=== PATIENT | male | born 1965 | race African-American/Black ===

== ENCOUNTER 2017-06-25 17:50 | Emergency (ER) | payer OTHER ==
[~2017-06-25] VITALS: Ht 170.2 cm; Wt 170.1 kg
[2017-06-25 19:11] VITALS: BP 142/68
[2017-06-25] MEDS ORDERED: IBUPROFEN 800 MG TAB PO ONE ×2 (19:30→19:41)
== END 2017-06-25 19:55 | disposition home or self-care (01) ==
LOC: ER 17:53
DX: S80.02XA Contusion of left knee, initial encounter (principal); I10 Essential (primary) hypertension; E78.5 Hyperlipidemia, unspecified; Z88.8 Allergy status to other drugs, medicaments and biological substances; W11.XXXA Fall on and from ladder, initial encounter; Y93.89 Activity, other specified; Y99.8 Other external cause status; Y92.89 Other specified places as the place of occurrence of the external cause
CPT/HCPCS: 29505; 73564

== ENCOUNTER 2018-03-16 21:00 | Emergency (ER) | payer OTHER ==
[~2018-03-16] VITALS: Ht 172.7 cm; Wt 172.4 kg
[2018-03-16 21:18] VITALS: BP 157/55
[2018-03-16] MEDS ORDERED: ACETAMINOPHEN 325 MG TAB PO ONE (21:30)
== END 2018-03-17 01:29 | disposition home or self-care (01) ==
LOC: ER 21:00
DX: J06.9 Acute upper respiratory infection, unspecified (principal); J02.9 Acute pharyngitis, unspecified; E78.5 Hyperlipidemia, unspecified; I10 Essential (primary) hypertension

== ENCOUNTER 2023-10-06 22:43 | Emergency (ER) | payer OTHER ==
[~2023-10-06] VITALS: Ht 170.2 cm; Wt 148.0 kg
[2023-10-07] MEDS ORDERED: CEPH500C PO (03:14)
[2023-10-07] MEDS: cefTRIAXone SOD 1,000 MG VL IM ONE (03:43)
[2023-10-07] MEDS: TETANUS-DIPTH-ACEL PERTUSSIS 0.5ML SYR Tdap IM ONE (03:44)
[2023-10-07 03:45] VITALS: BP 138/66; PULSE 78; RESP 18; TEMP 98; O2SAT 98
== END 2023-10-07 03:59 | disposition home or self-care (01) ==
LOC: ER 22:43
DX: S80.862A Insect bite (nonvenomous), left lower leg, initial encounter (principal); S80.861A Insect bite (nonvenomous), right lower leg, initial encounter; I10 Essential (primary) hypertension; E11.9 Type 2 diabetes mellitus without complications; E78.5 Hyperlipidemia, unspecified; Z88.0 Allergy status to penicillin; Z79.899 Other long term (current) drug therapy; Z91.018 Allergy to other foods; W57.XXXA Bitten or stung by nonvenomous insect and other nonvenomous arthropods, initial encounter; Y93.89 Activity, other specified; Y92.89 Other specified places as the place of occurrence of the external cause; Y99.8 Other external cause status
CPT/HCPCS: 90471; 90715; 96372; 99284; J0696

== ENCOUNTER 2024-04-13 02:20 | Emergency (ER) | payer OTHER ==
[~2024-04-13] VITALS: Ht 172.7 cm; Wt 151.8 kg
[~2024-04-13 02:20] MED LIST: CEPH500C PO
[2024-04-13 02:32] VITALS: TEMP 98
[2024-04-13] MEDS: KETOROLAC TROMETH 60MG/2ML VIAL IM ONE (03:19)
[2024-04-13] MEDS ORDERED: NAP500T PO (03:21)
[2024-04-13] MEDS ORDERED: CYCL-837 PO (03:21)
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
--- NOTE | 2024-04-13 04:10 | DVH ---
EXAMINATION: XY R RIB XRAY INDICATION: RIGHT SIDED RIBCAGE PAIN COMPARISON: None TECHNIQUE: Frontal view of the chest and right ribs. FINDINGS: No focal consolidation, pleural effusion or significant pneumothorax. Normal cardiomediastinal silhou ette. No displaced right rib fracture. IMPRESSION: 1. No acute cardiopulmonary disease. No displaced right rib fracture.
[2024-04-13 04:21] VITALS: BP 150/82; PULSE 94; RESP 16; O2SAT 97
== END 2024-04-13 04:27 | disposition home or self-care (01) ==
LOC: ER 02:20
DX: S23.41XA Sprain of ribs, initial encounter (principal); I10 Essential (primary) hypertension; E11.9 Type 2 diabetes mellitus without complications; Z88.0 Allergy status to penicillin; V43.52XA Car driver injured in collision with other type car in traffic accident, initial encounter; Y93.89 Activity, other specified; Y92.89 Other specified places as the place of occurrence of the external cause; Y99.8 Other external cause status
CPT/HCPCS: 71101; 96372; 99283; J1885